=== PATIENT | female | born 1945 | race Caucasian/White ===

== ENCOUNTER 2016-11-17 09:44 | Day surgery (SDC) | payer OTHER ==
[~2016-11-17] VITALS: Ht 160 cm; Wt 65.3 kg
[~2016-11-17 09:44] MED LIST: ATEN100T PO; CEFAZOLIN 2GM PREMIX 50 ML IV ONE; CIPR500T95 PO; FENTANYL PF 100 MCG/2 ML VIAL. IV PRN; HYDROMORPHONE 2 MG/ML VIAL. IV PRN; IBAN150T PO; IV RINGERS,LACTATED 1000ML 1,000 ML IV SCH; LIDOCAINE 1% 1 ML SYRINGE. ID PRN; LISI1TAB5 PO; MELA1TAB11 PO; NAPR500T3 PO; NITR100C62 PO; OMEP20TA63 PO; ONDANSETRON PF 4 MG/2 ML VIAL. IV PRN; PROCHLORPERAZINE 10 MG/2 ML VIAL. IV PRN; SIMV20TA3 PO
[2016-11-17] MEDS ORDERED: CEFAZOLIN 2GM PREMIX 50 ML IV ONE (10:39)
[2016-11-17] MEDS ORDERED: PROPOFOL 20 ML IV ONE ×2 (10:59→11:57)
[2016-11-17] MEDS ORDERED: LIDOCAINE 2% 100 MG/5 ML DISP.SYRIN. ONE (10:59)
[2016-11-17] MEDS ORDERED: FENTANYL PF 100 MCG/2 ML VIAL. ONE (10:59)
[2016-11-17] MEDS ORDERED: ROCURONIUM 50 MG/5 ML VIAL. ONE (10:59)
[2016-11-17] MEDS ORDERED: DEXAMETHASONE SOD PHOS 20 MG/5 ML VIAL. ONE (10:59)
[2016-11-17] MEDS ORDERED: ONDANSETRON PF 4 MG/2 ML VIAL. ONE (10:59)
[2016-11-17] MEDS ORDERED: DEXAMETHASONE SOD PHOS 20 MG/5 ML VIAL. IV ONE (11:15)
[2016-11-17] MEDS ORDERED: DEXAMETHASONE SOD PHOS 4 MG/ML VIAL ONE (11:16)
[2016-11-17] MEDS ORDERED: KETAMINE HCL 500 MG/10 ML VIAL. ONE (11:30)
[2016-11-17] MEDS ORDERED: SCOPOLAMINE 1.5MG PATCH. TD ONE (11:30)
[2016-11-17] MEDS ORDERED: BUPIVACAINE-EPI 0.5%-1:200000 50 ML VIAL. ONE (11:37)
[2016-11-17] MEDS ORDERED: GLYCOPYRROLATE 1 MG/5 ML VIAL. ONE (12:31)
[2016-11-17] MEDS ORDERED: NEOSTIGMINE METHYLSULFATE 5 MG/5 ML SYRINGE. ONE (12:31)
[2016-11-17] MEDS ORDERED: KETOROLAC 60 MG/2 ML SYRINGE FOR OR. ONE (12:48)
[2016-11-17] MEDS ORDERED: DESFLURANE 61 TO 120 MINUTES IH ONE (13:18)
[2016-11-17] MEDS ORDERED: SEVOFLURANE > 120 MINUTES. IH ONE (13:18)
[2016-11-17] MEDS: MORPHINE SULFATE 2 MG/ML DISP.SYRIN. IV PRN ×2 (13:54→14:16)
[2016-11-17] MEDS ORDERED: OXYC-323 PO (14:02)
[2016-11-17] MEDS ORDERED: ONDA4TAB7 PO (14:02)
[2016-11-17] MEDS ORDERED: OXYCODONE/APAP 5/325 TABLET. PO PRN ×2 (14:15)
--- NOTE | 2016-11-17 14:15 | PDOC ---
BRIEF OPERATIVE NOTE Pre-Op Diagnosis LIH LIH repair with mesh narciso arzola ebl 5 ivf 600 oscar well to rr stable. #[id number] BETH KRAMER MD Nov 17, 2016 14:15
[2016-11-17 15:44] VITALS: BP 175/78
--- NOTE | 2016-11-17 18:20 | OP ---
DATE OF SURGERY: 11/17/2016 PREOPERATIVE DIAGNOSIS: Left inguinal hernia. POSTOPERATIVE DIAGNOSIS: Left inguinal hernia. PROCEDURE: Laparoscopic left inguinal hernia repair with mesh. SURGEON: Beth Kramer MD ANESTHESIA: General. ESTIMATED BLOOD LOSS: 5 mL. IV FLUIDS: 600 mL. INDICATIONS: The patient is a very pleasant 71-year-old female with a left inguinal hernia that she would like to have repaired. FINDINGS: She had a indirect left inguinal hernia that was repaired with a large piece of 3DMax mesh. DESCRIPTION OF PROCEDURE: After informed consent was obtained, the patient was taken to the operating room and placed in the supine position. After adequate induction of general anesthesia, she was prepped and draped in usual sterile fashion. An umbilical skin incision was made with a scalpel, subcutaneous tissues with a hemostat. [facility] was used to grab the fascia and lift it anteriorly. Veress was used to gain access to the peritoneal cavity. Low opening pressures confirmed intraperitoneal placement of the Veress. Pneumoperitoneum to 15 mmHg was established followed by placement of 12 mm port. A 5 mm 30-degree lens was inserted, which revealed good port placement. No evidence of entry trauma. She was placed head down. Two additional ports were placed on either side of the midline after injecting the sites with local anesthetic. These were placed under direct laparoscopic vision. They were 5 mm ports. The peritoneum was scored from above the ASIS from the left side over to the midline and the preperitoneal space was then developed with DeBakey graspers. At the completion of the dissection, the preperitoneal space had been dissected to the midline and then deep to the Eleazar's ligament. The indirect hernia sac had been reduced. The round ligament had to be divided. The peritoneal flap was skeletonized well proximal from the indirect space so that the mesh could be placed without overlying our folding of the mesh. A large piece of 3DMax mesh was placed in the preperitoneal space that would cover the direct space, the potential femoral space as well as the direct space. It was secured to the abdominal wall and to the pubic tubercle with the secure strap. No tacks were placed along Eleazar's ligament and no tacks were placed deep to the iliopubic tract. The mesh was able to sit flat against the abdominal wall without rolling or shifting upon reapproximation of the flap. The flap was then reapproximated with a secure strap and at the completion of reapproximated of the peritoneal flap, all mesh was covered. There was no defects or disruptions in the peritoneal flap. No mesh was exposed. Local was injected 1 cm inferior, 1 cm medial to the anterior superior iliac spine within the musculature. Fascial closure device was used to close the fascia at the umbilical incision under direct laparoscopic vision. Ports removed under direct vision. They were hemostatic. Pneumoperitoneum was desufflated. Skin incisions were closed with 4-0 Monocryl in subcuticular fashion. Sterile dressings were placed. She tolerated the procedure well. There were no apparent complications. She was then transferred in stable condition to recovery room. BETH KRAMER MD DR: RASHAWN/brayden JOB#: [id number] / [id number] NANDA Pritchett MD MTDD
== END 2016-11-17 15:47 | disposition home or self-care (01) ==
LOC: SURG 09:44
PROVIDERS: ATTEND Surgery
DX: K40.90 Unilateral inguinal hernia, without obstruction or gangrene, not specified as recurrent (principal); E78.00 Pure hypercholesterolemia, unspecified; I10 Essential (primary) hypertension; F41.9 Anxiety disorder, unspecified; M19.90 Unspecified osteoarthritis, unspecified site; M81.0 Age-related osteoporosis without current pathological fracture; N39.0 Urinary tract infection, site not specified; Z98.51 Tubal ligation status; Z90.710 Acquired absence of both cervix and uterus; Z96.649 Presence of unspecified artificial hip joint
CPT/HCPCS: 49650; J0690; J1100; J1170; J1885; J2270; J2405; J2704; J2710; J3010; J3490; J7030

== ENCOUNTER 2016-11-26 14:12 | Inpatient (IN) | payer OTHER ==
[~2016-11-26] VITALS: Ht 160 cm; Wt 62.8 kg
[~2016-11-26 14:12] MED LIST changes: -CEFAZOLIN 2GM PREMIX 50 ML IV ONE; -FENTANYL PF 100 MCG/2 ML VIAL. IV PRN; -HYDROMORPHONE 2 MG/ML VIAL. IV PRN; -IV RINGERS,LACTATED 1000ML 1,000 ML IV SCH; -LIDOCAINE 1% 1 ML SYRINGE. ID PRN; +ONDA4TAB7 PO; -ONDANSETRON PF 4 MG/2 ML VIAL. IV PRN; +OXYC-323 PO; -PROCHLORPERAZINE 10 MG/2 ML VIAL. IV PRN
[2016-11-26] MEDS ORDERED: NON FORMULARY ITEM (Ibandronate Sodium (Boniva) 150 MG) PO SCH (16:00)
[2016-11-26] MEDS ORDERED: BISACODYL 10 MG SUPP.RECT PR PRN (16:00)
[2016-11-26] MEDS ORDERED: OXYCODONE IR 5 MG TABLET. PO PRN (16:00)
[2016-11-26] MEDS ORDERED: KETOROLAC 15 MG/ML VIAL. IV PRN (16:00)
[2016-11-26] MEDS ORDERED: ONDANSETRON ODT 4 MG TAB.RAPDIS PO PRN (16:00)
[2016-11-26] MEDS ORDERED: MAG HYDROX/AL HYDROX/SIMETH 30 ML ORAL.SUSP PO PRN (16:00)
[2016-11-26] MEDS ORDERED: PROCHLORPERAZINE 25 MG SUPP.RECT. PR PRN (16:00)
[2016-11-26] MEDS ORDERED: MAGNESIUM HYDROXIDE 2,400 MG/30 ML ORAL.SUSP. PO PRN (16:00)
[2016-11-26] MEDS ORDERED: CALCIUM CARBONATE 500 MG TAB.CHEW PO PRN (16:00)
[2016-11-26] MEDS ORDERED: PROCHLORPERAZINE 10 MG/2 ML VIAL. IV PRN (16:00)
[2016-11-26] MEDS ORDERED: LACTULOSE 20 GM/30 ML SOLUTION. PO PRN (16:00)
[2016-11-26] MEDS ORDERED: HYDROCODONE/APAP 5/325MG TABLET. PO PRN (16:00)
[2016-11-26] MEDS ORDERED: MORPHINE SULFATE 2 MG/ML DISP.SYRIN. IV PRN (16:00)
--- NOTE | 2016-11-26 16:17 | PDOC1 ---
History and Physical Date of Admission Date of Admission DATE: 11/26/16 TIME: 16:10 Identification/Chief Complaint Chief Complaint abd pain, Source Source: Chart review, Patient History of Present Illness History of Present Illness 71 y/o [place]ucais[place] female with good ADLs and IADLs. had elective hernia repair by our surgical team here 9 days ago as OP,woke up thsi AM with severe abd pain, bloated ness and pain she described as mostly around her post surgical sites ( laparoscopic). She also had multiple episodes of emesis. At [place]. CT scan showed ileus and constipatio. NO fevers, no diarrhea up until she got here to [facility] where she has had loose stools that she cant control. NOn c diff smelling, feels better actually after the loose stools. Surgical sites inspected, healing fine, LAbs at [place] ok Admitted here for GS to follow thru post op, but I do believe this was ileus post op that has resolved after signif BM and emesis,. Past Medical History Cardiovascular: HTN, Hyperlipidemia Past Surgical History Past Surgical History: Hernia Repair Family History Family History: No Significant Social History Smoke: No ALCOHOL: none Drugs: None Current Problem List Problem List Problems Surgical Problems: (1) S/P hernia repair Status: Acute Problems: Current Medications Current Medications Current Medications Sodium Chloride (Iv Sodium Chloride 0.45%) 1,000 ml @ 100 mls/hr Q10H IV ; Start 11/26/16 at 16:30 Ondansetron HCl (Zofran) 4 mg PRN Q6HRS PRN IV NAUSEA/VOMITING; Start 11/26/16 at 16:00 Prochlorperazine Edisylate (Compazine) 10 mg PRN Q6HRS PRN IV NAUSEA/VOMITING; Start 11/26/16 at 16:00 Prochlorperazine (Compazine) 25 mg PRN Q12HR PRN NJ NAUSEA/VOMITING; Start at 16:00 Al Hydroxide/Mg Hydroxide (Mylanta Plus Xs) 30 ml PRN Q3HRS PRN PO HEARTBURN / GAS; Start 11/26/16 at 16:00 Calcium Carbonate/ Glycine (Tums) 500 mg PRN Q3HRS PRN PO UPSET STOMACH; Start 11/26/16 at 16:00 Oxycodone HCl (Roxicodone) 5 mg PRN Q3HRS PRN PO BREAKTHROUGH PAIN; Start 11/26 at 16:00 Morphine Sulfate 2 mg PRN Q2HR PRN IV PAIN; Start 11/26/16 at 16:00 Acetaminophen/ Hydrocodone Bitart (Lortab 5/325) 1 tab PRN Q4HRS PRN PO MILD PAIN; Start 11/26/16 at 16:00 Ketorolac Tromethamine (Toradol) 15 mg PRN Q6HRS PRN IV PAIN; Start 11/26/16 at 16:00; Stop 12/01/16 at 15:59 Magnesium Hydroxide (Milk Of Magnesia) 2,400 mg PRN Q12HR PRN PO CONSTIPATION; Start 11/26/16 at 16:00 Lactulose 20 gm PRN Q12HR PRN PO CONSTIPATION; Start 11/26/16 at 16:00; Stop at 16:00; Status DC Bisacodyl (Dulcolax Supp) 10 mg PRN DAILY PRN NJ CONSTIPATION; Start 11/26/16 at 16:00; Stop 11/26/16 at 16:00; Status DC Nitrofurantoin Macrocrystals (Macrobid) 100 mg BID PO ; Start 11/26/16 at 21:00 Oxycodone/ Acetaminophen (Percocet 5/325) 1 tab TID PO ; Start 11/26/16 at 21:00 Simvastatin (Zocor) 20 mg QHS PO ; Start 11/26/16 at 21:00 Atenolol (Tenormin) 100 mg QHS PO ; Start 11/26/16 at 21:00 Non-Formulary Medication 150 mg MONTHLY PO ; Start 11/26/16 at 16:00; Status UNV Non-Formulary Medication 1 tab DAILY PO ; Start 11/27/16 at 09:00; Status UNV Pantoprazole Sodium (Protonix) 40 mg DAILYAC PO ; Start 11/27/16 at 07:30 Ondansetron HCl (Zofran Odt) 4 mg PRN Q8HRS PRN PO NAUSEA/VOMITING; Start 11/26 at 16:00 Lisinopril (Prinivil) 20 mg DAILY PO ; Start 11/26/16 at 17:00 Hydrochlorothiazide (Microzide) 12.5 mg DAILY PO ; Start 11/26/16 at 17:00 Active Scripts Active Zofran (Ondansetron Hcl) 4 Mg Tablet 1 Tab PO Q6HRS Percocet 5-325 Mg Tablet (Oxycodone/Acetaminophen) 1 Each Tablet 1-2 Tab PO Q4- 6HRS Reported Macrobid 100 Mg Capsule (Nitrofurantoin Monohyd/M-Cryst) 100 Mg Capsule 100 Mg PO DAILY Boniva (Ibandronate Sodium) 150 Mg Tablet 150 Mg PO MONTHLY Simvastatin 20 Mg Tablet 20 Mg PO DAILY Atenolol 100 Mg Tablet 1 Tab PO HS Lisinopril-Hctz 20-12.5 Mg Tab (Lisinopril/Hydrochlorothiazide) 1 Each Tablet 1 Tab PO DAILY Prilosec Otc (Omeprazole Magnesium) 20 Mg Tablet.dr 40 Mg PO DAILY Allergies Allergies: Coded Allergies: Sulfa (Sulfonamide Antibiotics) (Verified Allergy, Intermediate, Hives, ) ROS General: No: Appetite, Chills, Fatigue, Malaise, Night Sweats, Other PSYCHOLOGICAL ROS: No: Anxiety, Behavioral Disorder, Concentration difficultie , Decreased libido, Depression, Disorientation, Hallucinations, Hostility, Irritablity, Memory difficulties, Mood Swings, Obsessive thoughts, Other, Physical abuse, Sexual abuse, Sleep disturbances, Suicidal ideation Eyes: No Blurry vision, No Decreased vision, No Double vision, No Dry eyes, No Excessive tearing, No Eye Pain, No Itchy Eyes, No Loss of vision, No Other, No Photophobia, No Scotomata, No Uses contacts, No Uses glasses HEENT: No: Epistaxis, Heacaches, Hearing change, Nasal congestion, Nasal discharge, Oral lesions, Other, Sinus pain, Sneezing, Snoring, Sore Throat, Tinnitus, Vertigo, Visual Changes, Vocal changes ALLERGY AND IMMUNOLOGY: No: Hives, Insect Bite Sensitivity, Itchy/Watery Eyes, Nasal Congestion, Other, Post Nasal Drip, Seasonal Allergies Hematological and Lymphatic: No: Bleeding Problems, Blood Clots, Blood Transfusions, Brusing, Night Sweats, Other, Pallor, Swollen Lymph Nodes ENDOCRINE: No: Breast Changes, Galactorrhea, Hair Pattern Changes, Hot Flashes , Malaise/lethargy, Mood Swings, Other, Palpitations, Polydipsia/polyuria, Skin Changes, Temperature Intolerance, Unexpected Weight Changes Breast: No New/Changing Breast Lumps, No Nipple changes, No Nipple discharge, No Other Respiratory: No: Cough, Hemoptysis, Orthopnea, Other, Pleuritic Pain, SOB with excertion, Shortness of breath, Sputum Changes, Stridor, Tachypnea, Wheezing Cardiovascular: No Chest Pain, No Edema, No Lt Headedness, No Orthopnea, No Other, No Palpitations, No Paroxysmal Noc. Dyspnea Gastrointestinal: Yes Abdominal Pain, Yes Diarrhea, Yes Vomiting Genitourinary: No , No , No , No , No , No , No , No Discharge, No Dysuria, No Flank Pain, No Frequency, No Hematuria, No Incontinence, No Other, No Pain, No Retention, No Urgency Musculoskeletal: No Gait Disturbance, No Joint Pain, No Joint Stiffness, No Joint Swelling, No Muscle Pain, No Muscular Weakness, No Other, No Pain In:, No Swelling In: Neurological: No Behavorial Changes, No Bowel/Bladder ControlChng, No Confusion , No Dizziness, No Gait Disturbance, No Headaches, No Impaired Coord/balance, No Memory Loss, No Numbness/Tingling, No Other, No Seizures, No Speech Problems , No Tremors, No Visual Changes, No Weakness Skin: No Acne, No Dry Skin, No Eczema, No Hair Changes, No Lumps, No Mole Changes, No Mottling, No Nail Changes, No Other, No Pruritus, No Rash, No Skin Lesion Changes Physical Exam General: Alert, Oriented X3, Cooperative, No acute distress HEENT: Atraumatic, PERRLA Lungs: Clear to auscultation, Normal air movement Heart: S1S2, RRR, no thrills, no rubs, no gallops, no murmurs Breasts: Normal, Rt breast nml w/o mass, Lt breast nml w/o mass, Nipples normal Abdomen: Normal bowel sounds, Soft, No tenderness, No hepatosplenomegaly, Other (surgical sites healing well) Extremities: No clubbing, No cyanosis, No edema, Normal pulses, No tenderness/ swelling Skin: No rashes, No breakdown, No significant lesion Neuro: Normal gait, Normal speech, Strength at 5/5 X4 ext, Normal tone, Sensation intact, Cranial nerves 3-12 NL, Reflexes 2+ Psych/Mental Status: Mental status NL, Mood NL VTE Prophylaxis Ordered VTE Prophylaxis Devices: Yes VTE Pharmacological Prophylaxi: Yes Assessment/Plan Assessment/Plan 1. Likely post op ileus that has resolved after signif BM 2. Diarrhea and emesis, gastroenteritis 3. Recent elective hernia repair 4. HTN, dyslipidemia - chronic stable PLAN: IVF since diarrhea and vomiting Stools sent to lab today BAsed on exam abd is better hence I have orderd GI soft Check KUB tin, see reassess ileus seen on CT COnt home meds, antihypertensive COnsult GS since acutely post op PLan dw pt- in agreement [facility] Nov 26, 2016 16:17
[2016-11-26] MEDS: IV 1/2 NORMAL SALINE 1,000 ML IV SCH (16:30)
--- NOTE | 2016-11-26 16:39 | PDOC ---
Provider Note Provider Note #[id number] diarrhea, n/v, abd pain, ileus. agree with c diff testing. start flagyl. will follow along. thank you! BETH KRAMER MD Nov 26, 2016 16:39
[2016-11-26] MEDS: LISINOPRIL 20 MG TABLET PO SCH (17:00)
[2016-11-26] MEDS: HYDROCHLOROTHIAZIDE 12.5 MG CAPSULE. PO SCH (17:00)
[2016-11-26] MEDS: METRONIDAZOLE 500mg PREMIX 100 ML IV SCH (17:30)
[2016-11-26 19:00] VITALS: BP 173/80
[2016-11-26] MEDS ORDERED: SIMVASTATIN 20 MG TABLET PO SCH (21:00)
[2016-11-26] MEDS ORDERED: ATENOLOL 50 MG TABLET PO SCH (21:00)
[2016-11-26] MEDS: OXYCODONE/APAP 5/325 TABLET. PO SCH (21:42)
[2016-11-26] MEDS: NITROFURANTOIN MONOHYD/M-CRYST 100 MG CAPSULE. PO SCH (21:42)
[2016-11-26] MEDS: ONDANSETRON PF 4 MG/2 ML VIAL. IV PRN (21:43)
[2016-11-26 23:00] VITALS: BP 132/67
[2016-11-27 03:00] VITALS: BP 144/68
[2016-11-27] MEDS: IV 1/2 NORMAL SALINE 1,000 ML IV SCH (03:45)
[2016-11-27] MEDS: ONDANSETRON PF 4 MG/2 ML VIAL. IV PRN (03:56)
[2016-11-27 05:39] LABS: BASO # 0.1 x10^3/uL (0.0-0.2); BASO % 0 % (0-3); EOS % 1 % (0-3); HEMATOCRIT 35.2 % (36.0-47.0); HEMOGLOBIN 11.5 g/dL (12.0-15.5); LYMPH # 1.8 x10^3/uL (1.0-4.8); LYMPH % 10 % (24-48); MEAN CORPUSCULAR HEMOGLOBIN 28 pg (25-35); MEAN CORPUSCULAR HGB CONC 33 g/dL (31-37); MEAN CORPUSCULAR VOLUME 87 fL (79-100); MONO % 11 % (0-9); NEUT % 77 % (31-73); PLATELET COUNT 254 x10^3/uL (140-400); RED BLOOD COUNT 4.06 x10^6/uL (3.50-5.40); RED CELL DISTRIBUTION WIDTH 13.7 % (11.5-14.5); WHITE BLOOD COUNT 17.6 x10^3/uL (4.0-11.0)
[2016-11-27 05:59] LABS: CALCIUM 8.8 mg/dL (8.5-10.1); CREATININE 0.7 mg/dL (0.6-1.0); POTASSIUM 3.1 mmol/L (3.5-5.1)
[2016-11-27 06:28] LABS: INR 1.2 (0.8-1.1); PROTHROMBIN TIME PATIENT 14.7 SEC (11.7-14.0)
[2016-11-27 07:00] VITALS: BP 146/68
[2016-11-27] MEDS ORDERED: PANTOPRAZOLE 40 MG TABLET. PO SCH (07:30)
[2016-11-27 07:31] LABS: % EOS 2 % (0-5); PLT ESTIMATE ADEQUATE (ADEQUATE)
--- NOTE | 2016-11-27 08:15 | RAD ---
EXAM: Abdomen, single view. HISTORY: Ileus. COMPARISON: None. FINDINGS: A frontal view of the abdomen is obtained. There is moderate gas and stool within the colon. There are nondistended air-filled small bowel throughout the abdomen. There is no obstruction. There is a left hip arthroplasty. There is scoliosis and multilevel degenerative change involving the lumbar spine. IMPRESSION: Nonobstructive bowel gas pattern.
[2016-11-27] MEDS: NITROFURANTOIN MONOHYD/M-CRYST 100 MG CAPSULE. PO SCH (08:16)
[2016-11-27] MEDS: HYDROCHLOROTHIAZIDE 12.5 MG CAPSULE. PO SCH (08:17)
[2016-11-27] MEDS: OXYCODONE/APAP 5/325 TABLET. PO SCH (08:17)
[2016-11-27] MEDS: METRONIDAZOLE 500mg PREMIX 100 ML IV SCH (08:20)
[2016-11-27] MEDS: LISINOPRIL 20 MG TABLET PO SCH (08:37)
[2016-11-27] MEDS ORDERED: NON FORMULARY ITEM (Lisinopril/Hydrochlorothiazide (Lisinopril-Hctz 20-12.5 Mg Tab) 1 TAB) PO SCH (09:00)
[2016-11-27] MEDS ORDERED: MAGNESIUM SULFATE 2GM 50 ML IV ONE (10:30)
[2016-11-27] MEDS ORDERED: POTASSIUM CHLORIDE 20 MEQ TABLET.ER. PO ONE ×2 (10:30→13:00)
[2016-11-27 10:45] VITALS: BP 129/70
--- NOTE | 2016-11-27 13:48 | PDOC ---
Provider Note Provider Note feeling much better. sore in LLQ as expected after surgery. No more n/v, or diarrhea. wants to go home afeb vss c diff neg appears well abd soft nd kub nonobstructive a/p n/v, diarrhea, most likely gastroenteritis,. agree with dc home asked her to keep her scheduled appt with me on tuesday BETH KRAMER MD Nov 27, 2016 13:48
--- NOTE | 2016-11-27 17:34 | CONS ---
DATE OF CONSULTATION: CHIEF COMPLAINT: Abdominal pain, n/v. HISTORY OF PRESENT ILLNESS: The patient is a 71-year-old female on whom I performed a laparoscopic left inguinal hernia repair approximately one and a half weeks ago. She did very well until this morning where she woke up with diffuse abdominal pain and the pain was severe. It was crampy in nature without exacerbating or relieving factors. She had then developed nausea and vomiting associated with this. She had a small bowel movement this morning which consisted of a few small balls of stool consistent with constipated stool. She was then taken to the Emergency Room where her pain has been improved with morphine and she is now transferred from [facility] to the [place] where she has had at least three diarrheal stools since presenting to [facility] and with that, her pain has improved markedly. Risk factor would be chronic antibiotic use for UTIs. PAST MEDICAL HISTORY: Hypertension, hyperlipidemia as well as chronic UTIs for which she is on antibiotics. PAST SURGICAL HISTORY: 1. Laparoscopic left inguinal hernia repair. 2. Gynecologic surgery through a previous Pfannen[facility]. SOCIAL HISTORY: She is a nonsmoker, nondrinker. FAMILY HISTORY: Noncontributory to this illness. MEDICATIONS: See medication administration record, does include Macrobid at home. ALLERGIES: Sulfa. REVIEW OF SYSTEMS: CONSTITUTIONAL: No fevers or chills. HEMATOLOGIC: No easy bleeding or bruising. GENITOURINARY: No dysuria or hematuria. PHYSICAL EXAMINATION: GENERAL: She appears well, in no acute distress. PSYCHIATRIC: She is cooperative with appropriate mood and affect. NEUROLOGIC: Alert and oriented x 3, no resting tremor. ABDOMEN: Soft, mildly distended. Not significantly tender across the abdomen. In the left inguinal region, she has tenderness as would be expected following inguinal hernia repair. She has a small seroma as expected, but no left inguinal hernia. She has mild ecchymosis in the left groin. CT SCAN: I reviewed the images when the ER called me from [facility] and the CT scan is read as having a left inguinal hernia, would suggest that this is rather postoperative changes and expected seroma postoperatively and not a left inguinal hernia. She also has an ileus on CT scan. ASSESSMENT: 1. Ileus and diarrhea, possible C. diff colitis, possibly related to constipation, now resolving. 2. Possible gastroenteritis. 3. Nausea and vomiting. 4. Hypertension. 5. Hyperlipidemia. PLAN: I do not think this patient has a mechanical bowel obstruction. I do not think that she needs to be returned to the operating room at this time. I do agree with testing for C. diff. I have ordered empiric Flagyl for treatment of C. diff. Recommend IV fluids. We will recheck her labs tomorrow. Thank you for allowing me to care for this patient. BETH KRAMER MD DR: RASHAWN/brayden JOB#: [id number] / [id number] MICHELLE Yi MD, RICHARD MD [facility] HOSPITALRichard
[2016-11-28] MEDS ORDERED: POTASSIUM CHLORIDE 20 MEQ TABLET.ER. PO SCH (08:00)
== END 2016-11-27 14:06 | disposition home or self-care (01) | DRG 392 ==
LOC: 4 NORTH 15:41
PROVIDERS: ADMIT Internal Medicine; ATTEND Internal Medicine
DX: K52.9 Noninfective gastroenteritis and colitis, unspecified (principal); K56.7 Ileus, unspecified; E78.5 Hyperlipidemia, unspecified; I10 Essential (primary) hypertension; Z79.2 Long term (current) use of antibiotics; Z87.440 Personal history of urinary (tract) infections; Z88.2 Allergy status to sulfonamides
CPT/HCPCS: 36415; 74000; 80048; 85007; 85027; 85610; 87324; J2405; J3490; J7060; 97530